=== PATIENT | female | born 1990 | race African-American/Black ===

== ENCOUNTER 2018-08-23 12:41 | Emergency (ER) | payer OTHER ==
[~2018-08-23] VITALS: Ht 157.5 cm; Wt 74.8 kg
[2018-08-23 13:15] VITALS: BP 109/70
== END 2018-08-23 13:46 | disposition left against medical advice (07) ==
LOC: ER 12:53
DX: J06.9 Acute upper respiratory infection, unspecified (principal); Z53.29 Procedure and treatment not carried out because of patient's decision for other reasons